=== PATIENT | female | born 1980 | race Caucasian/White ===

== ENCOUNTER 2023-10-06 14:49 | Emergency (ER) | payer SELFPAY ==
[2023-10-06] MEDS ORDERED: fentaNYL 50 mcg/mL 1 mL Vial ONE ×3 (15:18→18:35)
[2023-10-06 15:42] LABS: #Basophils 0.1 thou/uL (0.0-0.2); #Lymphocytes 0.4 thou/uL (1.20-3.40); #Monocytes 1.5 thou/uL (0.11-0.59); #Neutrophils 16.4 thou/uL (1.40-6.50); %Basophils 0.7 % (0.0-1.0); %Lymphocytes 2.3 % (21.0-51.0); %Monocytes 8.1 % (0.0-10.0); %Neutrophils 88.8 % (42.0-75.0); Hematocrit 33.4 % (36.0-47.0); Hemoglobin 11.1 g/dL (12.0-16.0); Mean Corpuscular HGB CONC 33.3 g/dL (32.0-36.0); Mean Platelet Volume 7.9 fL (7.4-10.4); Platelet Count 367 10x3/uL (130-400); RBC Distribution Width 12.7 % (11.5-14.5); Red Blood Cell (RBC) Count 3.48 mill/uL (4.20-5.40); White Blood Cell (WBC) Count 18.4 10x3/uL (4.8-10.8)
[2023-10-06 15:46] LABS: BHCG - Serum Negative (NEGATIVE); INR-International Normal Ratio 1.4; Pregs Control Background? CLEAR/WHITE (CLR/WHITE); Pregs Control Bar Appear? YES (CONTROL BAR); Prothrombin Time 17.4 sec (12.0-14.7)
[2023-10-06 15:47] LABS: PTT 43.1 sec (22.9-36.1)
[2023-10-06 15:58] LABS: ALT (SGPT) 137 U/L (8-55); AST (SGOT) 352 U/L (5-34); Albumin 3.2 g/dL (3.5-5.0); Alkaline Phosphatase 1097 U/L (40-110); Anion Gap 22 mmol/L (10-20); BUN (Urea Nitrogen) 30 mg/dL (7.0-18.7); Bilirubin, Total 3.7 mg/dL (0.2-1.2); CK (CPK) 620 U/L (29-168); Calc. Creatinine Clearance 0 mL/min (70-130); Calcium 8.4 mg/dL (7.8-10.44); Carbon Dioxide 22 mmol/L (22-29); Chloride 76 mmol/L (98-107); Estimated GFR 77; Globulin 3.1 g/dL (2.4-3.5); Glucose 69 mg/dL (70-105); Lipase 17 U/L (8-78); Magnesium 2.7 mg/dL (1.6-2.6); Protein, Total 6.3 g/dL (6.0-8.3); Troponin I Less than 0.010 ng/mL (< 0.028)
[2023-10-06 16:06] LABS: Critical Call Chemistry NUR.AW2@1605; Potassium 7.6 mmol/L (3.5-5.1); Sodium 112 mmol/L (136-145)
[2023-10-06] MEDS ORDERED: Sodium Bicarb 50 MEQ/50 ML Abboject 8.4% SYRINGE ONE (16:13)
[2023-10-06] MEDS ORDERED: Dextrose 50% Abboject 50 ML SYRINGE ONE (16:13)
[2023-10-06] MEDS ORDERED: Calcium Gluc 4.6 MEQ/10 ML (100 MG/ML) ONE ×2 (16:14→19:43)
[2023-10-06] MEDS ORDERED: Insulin Regular 300 UNITS/3 ML VIAL ONE (16:14)
[2023-10-06] MEDS ORDERED: Ondansetron PF 4 MG/2 ML Vial ONE (16:19)
[2023-10-06 17:29] LABS: Bilirubin Moderate (Negative); Blood, Urine Negative (Negative); Glucose, Urine (Dipstick) 100 mg/dL (Negative); Ketone, Urine Trace mg/dL (Negative); Leukocyte Negative (Negative); Nitrite Negative (Negative); Protein, Urine (Dipstick) 100 mg/dL (Neg-Trace); Specific Gravity, Urine 1.025 (1.005-1.030)
[2023-10-06 17:39] LABS: Clarity Hazy (Clear)
[2023-10-06 17:43] LABS: Bacteria/HPF 1+ HPF (None Seen); CAUTI Indications for Culture Immunosuppressed; RBC/HPF None Seen HPF (0-3); WBC/HPF 0-3 HPF (0-3)
[2023-10-06 17:44] LABS: Mucous/LPF Few LPF (<2+)
[2023-10-06 17:45] LABS: Urine Culture Reflex Yes Yes
[2023-10-06 17:55] LABS: Anion Gap 21 mmol/L (10-20); BUN (Urea Nitrogen) 30 mg/dL (7.0-18.7); Calc. Creatinine Clearance 0 mL/min (70-130); Calcium 9.5 mg/dL (7.8-10.44); Carbon Dioxide 23 mmol/L (22-29); Chloride 75 mmol/L (98-107); Estimated GFR 70; Glucose 176 mg/dL (70-105)
[2023-10-06 17:59] LABS: Critical Call Chemistry NUR.AW2@1758; Potassium 6.6 mmol/L (3.5-5.1); Sodium 112 mmol/L (136-145)
[2023-10-06] MEDS ORDERED: Piperacillin/Tazobactam 4.5 GM VIAL ONE (17:59)
== END 2023-10-06 20:03 | disposition short-term general hospital (02) ==
LOC: MADERS 14:49
DX: E87.5 Hyperkalemia (principal); E87.1 Hypo-osmolality and hyponatremia; R18.0 Malignant ascites; C18.7 Malignant neoplasm of sigmoid colon
CPT/HCPCS: 36415; 36416; 71045; 80053; 81001; 82550; 83690; 83735; 83880; 84484; 84703; 85025; 85610; 85730; 87040; 87086; 93005; 94760; 96365; 96367; 96375; 96376; J0612; J1815; J2405; J2543; J3010; J7999